=== PATIENT | female | born 1970 | race Caucasian/White ===

== ENCOUNTER 2021-07-13 10:05 | Outpatient (CLI) | payer SELFPAY ==
--- NOTE | 2021-07-13 10:11 | MM_ITS ---
WS: [id number] BILATERAL 3D TOMOSYNTHESIS DIGITAL DIAGNOSTIC MAMMOGRAPHY WITH CAD CLINICAL INFORMATION: LT BREAST LUMP/TENDERNESS 700 POSITION COMPARISON: None. TECHNIQUE: Bilateral CC, MLO, and ML views. FINDINGS: History of bilateral breast reduction Scattered fibroglandular densities bilaterally. Incidental punctate calcifications LEFT breast. No davey spicious abnormalities deep to the palpable marker LEFT breast. RIGHT breast is unremarkable. Ultraso und LEFT breast is pending. ULTRASOUND BREAST LEFT TECHNIQUE: Ultrasound left breast focused area of concern. CLINICAL INFORMATION: LT BREAST LUMP/TENDERNESS 700 POSITION COMPARISON: None. FINDINGS: Ultrasound LEFT breast in the area of patient concern near the 7:00 position 6 cm from the nipple. Th is is in the area of breast reduction scar. Normal underlying parenchymal tissue. No cystic or solid lesions. No suspicious abnormalities. MM/[place] [id number] IMPRESSION: BI-RADS: 2-Benign FOLLOW UP: 1 Year Follow-up Recommend return to annual screening mammography.
== END 2021-07-13 10:06 | disposition home or self-care (01) ==
LOC: RADSHAW 10:08
PROVIDERS: Family Provider Family Medicine; Visit Provider Nurse Practitioner Family
DX: N63.24 Unspecified lump in the left breast, lower inner quadrant (principal)
CPT/HCPCS: 76642; 77062

== ENCOUNTER 2021-08-24 12:20 | Emergency (ER) | payer SELFPAY ==
[2021-08-24 12:40] VITALS: BP 168/105; PULSE 69; RESP 16; TEMP 36.1; O2SAT 99; BMI 27.3
[2021-08-24 13:19] LABS: Basophils % 0.3 %; Hematocrit 45.4 % (37.0-47.0); Hemoglobin 15.4 g/dL (11.5-15.3); Lymphocytes # 2.2 10^3/uL (0.8-4.8); Lymphocytes % 37.4 %; Mean Corpuscular HGB Conc 33.9 g/dL (30.0-36.0); Mean Corpuscular Hemoglobin 32.2 pg (28.0-34.0); Mean Corpuscular Volume 94.8 fl (81-99); Mean Platelet Volume 11.1 fL (7.4-10.4); Monocytes # 0.5 10^3/uL (0.2-0.9); Monocytes % 7.6 %; Neutrophils # 3.24 10^3/uL (1.8-7.7); Neutrophils % 54.4 %; Nucleated Red Blood Cells % 0 %; Platelet Count 251 10^3/cmm (130-400); Red Blood Count 4.79 10^6/uL (4.1-5.3); Red Cell Distribution Width 12.7 % (12.1-15.1)
--- NOTE | 2021-08-24 13:33 | W.ED.NAVMDI ---
HPI - Nausea/Vomiting/Diarrhea General: Chief complaint: Nausea/Vomiting/Diarrhea Stated complaint: Vomiting, stomach pains Time Seen by Provider: 08/24/21 13:12 Source: patient Mode of arrival: ambulatory Limitations: no limitations History of Present Illness: Patient is a 51-year-old female who presents to ED today with complaint of nausea, vomiting, diarrhea over the past 48 hours. Patient states the vomiting and diarrhea has slowly improved over that time. And states she has only had one episode of vomiting this morning and she has not had any diarrhea since yesterday. She never had any blood in her emesis or stool. She complains of feeling dehydrated currently. Patient denies urinary symptoms or flank pains. Patient never ran fevers. No sick contacts or poor food exposures. She is not having any abdominal pain. MD elicited complaint: nausea, vomiting and diarrhea Onset (ago): day(s) Description of diarrhea: watery Associated nausea: Yes Associated abdominal pain: No Location of pain: None Exacerbating factors: eating Relieving factors: vomiting Associated symtoms: Reports nausea; Denies change in vision, chest pain, dizziness, dysuria, fatigue, headache(s) or malaise Review of Systems Const: Denies: fever(s), chills, body aches, fatigue or malaise Eyes: Denies: change in vision ENMT: Denies: throat pain, odynophagia, nasal discharge or nasal congestion Card: Denies: chest pain Resp: Denies: dyspnea or chest congestion GI: Reports: nausea, vomiting and diarrhea; Denies: abdominal pain, hematemesis, hematochezia or melena : Denies: flank pain, difficulty voiding, dysuria, urinary urgency, hematuria, vaginal bleeding, vaginal discharge or pelvic pain Musc: Denies: neck pain, back pain, extremity pain or joint pain Skin/Breast: Denies: rash Neuro: Denies: headache(s), numbness in extremities, weakness in extremities, sensory changes or dizziness Physical Exam Const: COMMON NORMALS: no acute distress, patient oriented x3, no limitations, alert and well nourished GENERAL APPEARANCE: cooperative ORIENTATION/CONSCIOUSNESS: Yes awake, Yes oriented to person, Yes oriented to place and Yes oriented to time HENMT: COMMON NORMALS: normocephalic and atraumatic HEAD & SCALP: normal to inspection, normocephalic and atraumatic Eye: GENERAL EYE: appearance normal, both eyes and all related structures SCLERA: sclerae normal Neck/C-Spine: COMMON NORMALS: full ROM, no lymphadenopathy and no meningeal signs Resp: COMMON NORMALS: normal respiratory effort and clear to auscultation bilaterally AUSCULTATION: clear to auscultation bilaterally Cardio: COMMON NORMALS: regular rate and regular rhythm RATE: regular rate RHYTHM: regular rhythm GI: COMMON NORMALS: Normal to inspection, nondistended, normoactive bowel sounds present, Soft to palpation, non-tender, No hepatosplenomegaly present and no masses INSPECTION: Yes normal to inspection AUSCULTATION: Yes normoactive bowel sounds PALPATION: Yes Soft to palpation and Yes No hepatosplenomegaly present : COMMON NORMALS: Yes no CVA tenderness BLADDER/KIDNEY EXAM: Yes no CVA tenderness Back/Pelvis: COMMON NORMALS: no CVA tenderness Extremity: COMMON NORMALS: normal to inspection Neuro: PASCUAL COMA SCALE: document GCS findings [place] coma scale eye opening: Spontaneous [place] coma scale verbal response: Orientated [place] coma scale motor response: Obey commands [place] coma scale total score: 15 COMMON NORMALS: patient oriented x3 SENSORIUM/ORIENTATION: Yes alert, Yes oriented to person, Yes oriented to place and Yes oriented to time MENINGEAL SIGNS: Yes no meningeal signs Skin: COMMON NORMALS: no rashes or lesions noted GENERAL SKIN EXAM: no rashes or lesions noted Course Vital Signs: Vital signs: Vital Signs Temperature 97.0 F L 08/24/21 12:40 Pulse Rate 69 08/24/21 12:40 Respiratory Rate 16 08/24/21 12:40 Blood Pressure 168/105 08/24/21 12:40 Pulse Oximetry 99 08/24/21 12:40 MDM - Nausea/Vomiting/Diarrhea Medical Decision Making Patient has not had any vomiting or diarrhea while here. She feels better after IV fluids and Zofran. Patient does not have any abdominal discomfort. Her blood work here is overall is non-concerning. Patient feels like she has improved since symptoms first started. Discussed how most likely this is a self-limiting gastroenteritis and hopefully she is on the tail end of it. Will write for small amount of Zofran she can use as needed at home. Recommend continuing to push fluids as well as a bland diet and advancing as tolerated. Return to ED precautions verbally discussed with patient. Lab Data : 08/24/21 13:09 08/24/21 13:09 Laboratory Results WBC 6.0 10^3/uL (4.0-10.0) 08/24/21 13:09 RBC 4.79 10^6/uL (4.1-5.3) 08/24/21 13:09 Hgb 15.4 g/dL (11.5-15.3) H 08/24/21 13:09 Hct 45.4 % (37.0-47.0) 08/24/21 13:09 MCV 94.8 fl (81-99) 08/24/21 13:09 MCH 32.2 pg (28.0-34.0) 08/24/21 13:09 MCHC 33.9 g/dL (30.0-36.0) 08/24/21 13:09 RDW 12.7 % (12.1-15.1) 08/24/21 13:09 Plt Count 251 10^3/cmm (130-400) 08/24/21 13:09 MPV 11.1 fL (7.4-10.4) H 08/24/21 13:09 Neut % (Auto) 54.4 % 08/24/21 13:09 Lymph % (Auto) 37.4 % 08/24/21 13:09 Piatt % (Auto) 7.6 % 08/24/21 13:09 Eos % (Auto) 0.0 % 08/24/21 13:09 Baso % (Auto) 0.3 % 08/24/21 13:09 Neut # (Auto) 3.24 10^3/uL (1.8-7.7) 08/24/21 13:09 Lymph # (Auto) 2.2 10^3/uL (0.8-4.8) 08/24/21 13:09 Piatt # (Auto) 0.5 10^3/uL (0.2-0.9) 08/24/21 13:09 Eos # (Auto) 0.0 10^3/uL (0.0-0.8) 08/24/21 13:09 Baso # (Auto) 0.0 10^3/uL (0.0-0.1) 08/24/21 13:09 Nucleated RBC % (auto) 0 % 08/24/21 13:09 Nucleated RBCs # 0.0 /100WBC 08/24/21 13:09 Sodium 141 mmol/L (136-145) 08/24/21 13:09 Potassium 4.0 mmol/L (3.5-5.1) 08/24/21 13:09 Chloride 104 mmol/L (98-107) 08/24/21 13:09 Carbon Dioxide 26 mmol/L (22-29) 08/24/21 13:09 Anion Gap 15.0 (5-19) 08/24/21 13:09 BUN 15 mg/dL (6-20) 08/24/21 13:09 Creatinine 0.6 mg/dL (0.5-0.9) 08/24/21 13:09 GFR Calculation 104.6 mL/min (90-130) 08/24/21 13:09 Glucose 92 mg/dL (65-115) 08/24/21 13:09 Calculated Osmolality 292 mOsm/kg (285-295) 08/24/21 13:09 Calcium 9.6 mg/dL (8.5-10.5) 08/24/21 13:09 Total Bilirubin 0.3 mg/dL (0.15-1.2) 08/24/21 13:09 AST 22 U/L (0-32) 08/24/21 13:09 ALT 39 U/L (0-33) H 08/24/21 13:09 Alkaline Phosphatase 124 IU/L (35-105) H 08/24/21 13:09 Total Protein 7.5 g/dL (6.6-8.7) 08/24/21 13:09 Albumin 4.4 g/dL (3.5-5.2) 08/24/21 13:09 Globulin 3.1 g/dL (1.3-4.6) 08/24/21 13:09 Lipase 20 U/L (13-60) 08/24/21 13:09 Urine Color Straw (Yellow) 08/24/21 13:09 Urine Appearance Clear (CLEAR) 08/24/21 13:09 Urine pH 5 (5-7) 08/24/21 13:09 Ur Specific [place] 1.010 (1.005-1.030) 08/24/21 13:09 Urine Protein Neg (Negative) 08/24/21 13:09 Urine Glucose (UA) Norm (Normal) 08/24/21 13:09 Urine Ketones 2+ (Negative) H 08/24/21 13:09 Urine Blood Neg (Negative) 08/24/21 13:09 Urine Nitrate Negative (Negative) 08/24/21 13:09 Urine Bilirubin Neg (Negative) 08/24/21 13:09 Urine Urobilinogen Norm mg/dL (Negative) 08/24/21 13:09 Ur Leukocyte Esterase Negative (Negative) 08/24/21 13:09 Discharge Plan Discharge Patient Disposition: Home Clinical Impression: Gastroenteritis Condition: Stable Prescriptions: New ondansetron 4 mg tablet,disintegrating 4 mg PO Q8H PRN (Reason: nausea and vomiting) Qty: 8 0RF Discharge Orders: Discharge ED (Routine); Ordered 08/24/21 Ordered By: Bessie Irene Referrals: Angel Pittman MD [Family Provider] - Patient Instructions: Gastroenteritis (DC) Stand Alone Forms: Work/School Release Coding Level of Care Code 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
[2021-08-24 13:34] LABS: Alanine Aminotransferase 39 U/L (0-33); Albumin Level 4.4 g/dL (3.5-5.2); Alkaline Phosphatase 124 IU/L (35-105); Aspartate Amino Transferase 22 U/L (0-32); Blood Urea Nitrogen 15 mg/dL (6-20); Calcium 9.6 mg/dL (8.5-10.5); Carbon Dioxide 26 mmol/L (22-29); Chloride 104 mmol/L (98-107); Globulin 3.1 g/dL (1.3-4.6); Glomerular Filtration Rate 104.6 mL/min (90-130); Glucose 92 mg/dL (65-115); Lipase 20 U/L (13-60); Osmolality Calculated 292 mOsm/kg (285-295); Sodium 141 mmol/L (136-145); Total Bilirubin 0.3 mg/dL (0.15-1.2); Total Protein 7.5 g/dL (6.6-8.7)
[2021-08-24] MEDS: ondansetron 2 mg/ML SDV 2 mL 4 MG IVP (13:41)
[2021-08-24] MEDS: sodium chloride 0.9% 1,000 ML 999 ML IV (13:41)
[2021-08-24 18:29] LABS: Add Urine Culture? Yes; Add Urine Microscopic? YES; Bacteria Urine 4+ /hpf; Bilirubin Urine Neg (Negative); Blood Urine Neg (Negative); Glucose Urine UA Norm (Normal); Ketones Urine Negative (Negative); Leukocyte Esterase Urine Negative (Negative); Nitrate Urine Negative (Negative); Protein Urine Neg (Negative); RBC Urine 0-4 /hpf (0-2); Urine Appearance Cloudy (CLEAR); Urine Color Yellow (Yellow); Urobilinogen Urine 1 mg/dL (Negative); WBC Urine 15-25 /hpf (0-5); pH Urine 6 (5-7)
== END 2021-08-24 14:31 | disposition home or self-care (01) ==
PROVIDERS: Emergency Provider Physician Assistant
DX: K52.9 Noninfective gastroenteritis and colitis, unspecified (principal)
CPT/HCPCS: 80053; 81001; 83690; 85025; 87077; 87086; 96361; 96374; 99284; J2405; J7030

== ENCOUNTER 2021-11-07 12:14 | Emergency (ER) | payer SELFPAY ==
[2021-11-07 12:24] VITALS: BP 193/103; PULSE 69; RESP 18; TEMP 36.8; O2SAT 99; BMI 27.3
[2021-11-07 13:54] LABS: Basophils % 0.4 %; Hematocrit 46.9 % (37.0-47.0); Hemoglobin 15.9 g/dL (11.5-15.3); Lymphocytes # 2.5 10^3/uL (0.8-4.8); Lymphocytes % 34.9 %; Mean Corpuscular HGB Conc 33.9 g/dL (30.0-36.0); Mean Corpuscular Hemoglobin 32.1 pg (28.0-34.0); Mean Corpuscular Volume 94.7 fl (81-99); Mean Platelet Volume 10.9 fL (7.4-10.4); Monocytes # 0.5 10^3/uL (0.2-0.9); Monocytes % 6.5 %; Neutrophils % 57.8 %; Nucleated Red Blood Cells % 0 %; Platelet Count 264 10^3/cmm (130-400); Red Blood Count 4.95 10^6/uL (4.1-5.3); Red Cell Distribution Width 13.6 % (12.1-15.1); White Blood Count 7.3 10^3/uL (4.0-10.0)
[2021-11-07 14:23] LABS: Alanine Aminotransferase 37 U/L (0-33); Albumin Level 4.9 g/dL (3.5-5.2); Alkaline Phosphatase 123 IU/L (35-105); Anion Gap 13.9 (5-19); Aspartate Amino Transferase 17 U/L (0-32); Blood Urea Nitrogen 15 mg/dL (6-20); Calcium 9.9 mg/dL (8.5-10.5); Carbon Dioxide 28 mmol/L (22-29); Chloride 103 mmol/L (98-107); Globulin 2.6 g/dL (1.3-4.6); Glomerular Filtration Rate 104.6 mL/min (90-130); Glucose 91 mg/dL (65-115); Osmolality Calculated 292 mOsm/kg (285-295); Potassium 3.9 mmol/L (3.5-5.1); Sodium 141 mmol/L (136-145); Total Bilirubin 0.3 mg/dL (0.15-1.2); Total Protein 7.5 g/dL (6.6-8.7)
[2021-11-07 15:33] VITALS: BP 160/102
--- NOTE | 2021-11-07 16:31 | W.ED.GENADLT ---
HPI - General Adult General: Chief complaint: General Medical Stated complaint: high bp issues Time Seen by Provider: 11/07/21 16:02 Source: patient Mode of arrival: ambulatory Limitations: no limitations History of Present Illness: Patient is a 51-year-old female with no known medical conditions here for concerns of an elevated blood pressure reading today. Patient states she was at work when she began feeling lightheaded and dizzy. She was instructed by a coworker to check her blood pressure. She states when she did she had readings of 180s/100s. Patient was instructed to go to the emergency department. Upon arrival here blood pressure was 190s/100s. While sitting in the waiting room blood pressure did decrease and during my initial examination systolic was in the 160s. She does states she feels better but does complain of generally feeling weak/tired. She has no complaints of chest pain, back pain, shortness of breath or difficulty breathing. No headache or visual changes. Patient states she never checks her blood pressure at home. Onset (ago): hour(s) Associated symptoms: Deny chest pain, dyspnea, headache(s), malaise, nausea, rash, palpitations, syncope or vomiting Review of Systems Const: Denies: fever(s), chills, body aches, fatigue or malaise Eyes: Denies: change in vision, blurry vision, photophobia, floaters or seeing flashes Card: Denies: chest pain, palpitations, irregular heart rhythm, lightheadedness, syncope or dyspnea on exertion Resp: Denies: dyspnea, productive cough or pain on inspiration GI: Denies: abdominal pain, nausea, vomiting, heartburn or diarrhea : Denies: flank pain, dysuria or hematuria Musc: Denies: neck pain, back pain, extremity pain or joint pain Skin/Breast: Denies: rash Neuro: Reports: other (weak); Denies: headache(s), numbness in extremities, weakness in extremities, sensory changes or dizziness Physical Exam Const: COMMON NORMALS: no acute distress, patient oriented x3, no limitations, alert and well nourished GENERAL APPEARANCE: cooperative ORIENTATION/CONSCIOUSNESS: Yes awake, Yes oriented to person, Yes oriented to place and Yes oriented to time HENMT: COMMON NORMALS: normocephalic and atraumatic HEAD & SCALP: normal to inspection, normocephalic and atraumatic Eye: GENERAL EYE: appearance normal, both eyes and all related structures Neck/C-Spine: COMMON NORMALS: full ROM, no lymphadenopathy, supple and no meningeal signs Chest: COMMONS NORMALS: normal inspection of the chest Resp: COMMON NORMALS: normal respiratory effort and clear to auscultation bilaterally AUSCULTATION: clear to auscultation bilaterally Cardio: COMMON NORMALS: regular rate and regular rhythm RATE: regular rate RHYTHM: regular rhythm GI: COMMON NORMALS: Normal to inspection, nondistended, normoactive bowel sounds present, Soft to palpation, non-tender, No hepatosplenomegaly present and no masses PALPATION: Yes Soft to palpation and Yes No hepatosplenomegaly present : COMMON NORMALS: Yes no CVA tenderness BLADDER/KIDNEY EXAM: Yes no CVA tenderness Back/Pelvis: COMMON NORMALS: no CVA tenderness, thoracic and lumbar spine normal to inspection, no thoracic nor lumbar tenderness and thoraco-lumbar ROM normal Extremity: COMMON NORMALS: normal to inspection, no joint enlargement, no clubbing, cyanosis or edema, no calf tenderness and no pedal edema GENERAL: Yes normal exam except as noted Neuro: NIALL COMA SCALE: document GCS findings [place] coma scale eye opening: Spontaneous [place] coma scale verbal response: Orientated [place] coma scale motor response: Obey commands [place] coma scale total score: 15 COMMON NORMALS: patient oriented x3, CN's II-XII intact bilaterally, moves all extremities, no focal motor deficits, no sensory deficits noted and gait normal SENSORIUM/ORIENTATION: Yes alert, Yes oriented to person, Yes oriented to place and Yes oriented to time MENINGEAL SIGNS: Yes no meningeal signs Skin: COMMON NORMALS: no rashes or lesions noted GENERAL SKIN EXAM: no rashes or lesions noted Course Vital Signs: Vital signs: Vital Signs Temperature 98.2 F 11/07/21 12:24 Pulse Rate 69 11/07/21 12:24 Respiratory Rate 18 11/07/21 12:24 Blood Pressure 160/102 11/07/21 15:33 Pulse Oximetry 99 11/07/21 12:24 [facility] - General Adult Medical Decision Making Patient tells me a long time ago she was diagnosed with hypertension and used to take lisinopril but for what ever reason is no longer taking this medication. She reportedly does not take her blood pressures at home. My suspicion is that her blood pressure is chronically high and she just had a spike of this today while at work. She doesn't have any history of signs concerning for end organ damage. She will be allowed discharge with directions to start back on lisinopril and keep BP log. Will place referral to get her follow up with a PCP. Strict return to ED precautions given. Lab Data : 11/07/21 13:45 11/07/21 13:45 Laboratory Results WBC 7.3 10^3/uL (4.0-10.0) 11/07/21 13:45 RBC 4.95 10^6/uL (4.1-5.3) 11/07/21 13:45 Hgb 15.9 g/dL (11.5-15.3) H 11/07/21 13:45 Hct 46.9 % (37.0-47.0) 11/07/21 13:45 MCV 94.7 fl (81-99) 11/07/21 13:45 MCH 32.1 pg (28.0-34.0) 11/07/21 13:45 MCHC 33.9 g/dL (30.0-36.0) 11/07/21 13:45 RDW 13.6 % (12.1-15.1) 11/07/21 13:45 Plt Count 264 10^3/cmm (130-400) 11/07/21 13:45 MPV 10.9 fL (7.4-10.4) H 11/07/21 13:45 Neut % (Auto) 57.8 % 11/07/21 13:45 Lymph % (Auto) 34.9 % 11/07/21 13:45 Andrew % (Auto) 6.5 % 11/07/21 13:45 Eos % (Auto) 0.0 % 11/07/21 13:45 Baso % (Auto) 0.4 % 11/07/21 13:45 Neut # (Auto) 4.20 10^3/uL (1.8-7.7) 11/07/21 13:45 Lymph # (Auto) 2.5 10^3/uL (0.8-4.8) 11/07/21 13:45 Andrew # (Auto) 0.5 10^3/uL (0.2-0.9) 11/07/21 13:45 Eos # (Auto) 0.0 10^3/uL (0.0-0.8) 11/07/21 13:45 Baso # (Auto) 0.0 10^3/uL (0.0-0.1) 11/07/21 13:45 Nucleated RBC % (auto) 0 % 11/07/21 13:45 Nucleated RBCs # 0.0 /100WBC 11/07/21 13:45 Sodium 141 mmol/L (136-145) 11/07/21 13:45 Potassium 3.9 mmol/L (3.5-5.1) 11/07/21 13:45 Chloride 103 mmol/L (98-107) 11/07/21 13:45 Carbon Dioxide 28 mmol/L (22-29) 11/07/21 13:45 Anion Gap 13.9 (5-19) 11/07/21 13:45 BUN 15 mg/dL (6-20) 11/07/21 13:45 Creatinine 0.6 mg/dL (0.5-0.9) 11/07/21 13:45 GFR Calculation 104.6 mL/min (90-130) 11/07/21 13:45 Glucose 91 mg/dL (65-115) 11/07/21 13:45 Calculated Osmolality 292 mOsm/kg (285-295) 11/07/21 13:45 Calcium 9.9 mg/dL (8.5-10.5) 11/07/21 13:45 Total Bilirubin 0.3 mg/dL (0.15-1.2) 11/07/21 13:45 AST 17 U/L (0-32) 11/07/21 13:45 ALT 37 U/L (0-33) H 11/07/21 13:45 Alkaline Phosphatase 123 IU/L (35-105) H 11/07/21 13:45 Total Protein 7.5 g/dL (6.6-8.7) 11/07/21 13:45 Albumin 4.9 g/dL (3.5-5.2) 11/07/21 13:45 Globulin 2.6 g/dL (1.3-4.6) 11/07/21 13:45 Discharge Plan Discharge Patient Disposition: Home Clinical Impression: Hypertension Condition: Stable Prescriptions: New lisinopril 20 mg tablet 20 mg PO DAILY Qty: 30 0RF No Action ondansetron 4 mg tablet,disintegrating 4 mg PO Q8H PRN (Reason: nausea and vomiting) Qty: 8 0RF Discharge Orders: Discharge ED (Routine); Ordered 11/07/21 Ordered By: Bessie Irene Patient Instructions: Hypertension (ED) Activity Restrictions/Additional Instructions: As we discussed you need to keep a detailed blood pressure log taking your blood pressures no more than 2-3 times a day. I have placed a referral for case management to set you up with primary care provider for further evaluation and treatment. You need to return to the emergency department for symptoms such as severe headache, visual changes, lightheadedness/dizziness, trouble ambulating, chest pain/shortness of breath, repetitive vomiting, severe back pain, seizures, or any other concerns you may have. Coding Level of Care Code ED Straight Line Edger for Kristyn Johnson
--- NOTE | 2021-11-09 09:10 | DCPLANNER ---
manager pool had message to speak with patient about getting established with a primary care physician. manager pool called phone number [phone], person that answered the phone stated that this is not the patients phone number and has not been for several years.
== END 2021-11-07 17:15 | disposition home or self-care (01) ==
PROVIDERS: Emergency Provider Physician Assistant
DX: I10 Essential (primary) hypertension (principal)
CPT/HCPCS: 80053; 85025; 99283

== ENCOUNTER 2022-02-13 07:32 | Emergency (ER) | payer SELFPAY ==
[2022-02-13] VITALS (12 sets, daily range): BP systolic 167–207; BP diastolic 90–121; PULSE 54–77; RESP 16–18; TEMP 36.7; O2SAT 95–98; BMI 28.1
--- NOTE | 2022-02-13 08:05 | XR_ITS ---
WS: [id number] Exam: XR chest 1V portable [id number] Date/Time of Exam: 02/13/2022 8:05 AM Reason For Exam: cough and fever Comparison 05/25/2017. Findings: The lungs are clear and fully expanded. Costophrenic angles are sharp. No infiltrates. Bronchovascula r relief appears normal. Cardiac silhouette is unremarkable. Bony elements are intact. XR/XR chest 1V portable [id number] IMPRESSION: Unremarkable chest radiograph.
--- NOTE | 2022-02-13 08:06 | W.ED.URI ---
HPI - URI/Sore Throat General: Chief Complaint: Upper Respiratory Infection Stated Complaint: Shortness of Breath Time Seen by Provider: 02/13/22 07:47 History of Present Illness: Patient is a 51-year-old female who comes to the ED with cough. Symptoms started approximately 2 weeks ago. She is been having a dry cough that has continued to worsen. She is not able to cough anything up but says her cough gets worse at night she has trouble sleeping. Endorses having some body aches and chills as well. She had a couple days of a fever along with some nausea. Denies any known sick contacts. Denies any chest pain or shortness of breath. Patient is a current and daily tobacco smoker. Patient says she is taken multiple at home COVID test this week and they were all negative. Patient is supposed to be on lisinopril for hypertension but states she does not have a prescription for it and has not been taking it. Associated symptoms: Reports chills, fever(s) and nausea; Deny abdominal pain, chest pain, diarrhea, headache(s), nasal congestion or vomiting Review of Systems Const: Reports: fever(s), chills, body aches and fatigue Eyes: Denies: change in vision or eye discomfort ENMT: Denies: throat pain, odynophagia, nasal discharge or nasal congestion Card: Denies: chest pain, palpitations, edema, swelling of feet/ankles, dyspnea on exertion or orthopnea Resp: Reports: non-productive cough; Denies: dyspnea or productive cough GI: Reports: nausea; Denies: abdominal pain, vomiting, diarrhea, constipation or hematochezia : Denies: flank pain, dysuria or hematuria Musc: Denies: neck pain, back pain or extremity swelling Skin/Breast: Denies: rash or new lesions Neuro: Denies: headache(s), numbness in extremities or weakness in extremities PFS ED PFSH: Medical History (Updated 02/14/22 @ 12:11 by GRECIA Jernigan) Hypertension No pertinent family history Physical Exam Const: COMMON NORMALS: no acute distress, patient oriented x3 and alert GENERAL APPEARANCE: cooperative and comfortable HENMT: COMMON NORMALS: normocephalic HEAD & SCALP: normocephalic MOUTH: Normal oral and palatal mucosa present THROAT: posterior oropharynx normal and uvula midline Neck/C-Spine: COMMON NORMALS: supple GENERAL: Yes normal visual inspection Resp: COMMON NORMALS: normal respiratory effort, No retractions and No use of accessory muscles EFFORT & INSPECTION: Yes Actively coughing dry and strong AUSCULTATION: diminished lung sounds bilateral in the lower lung darby Cardio: COMMON NORMALS: regular rate, regular rhythm, S1 normal heart sound present, S2 normal heart sound present, No gallops present (Cardio), No clicks present (Cardio), No murmurs present (Cardio) and Peripheral pulses 2+ throughout RATE: regular rate RHYTHM: regular rhythm HEART SOUNDS: S1 normal heart sound present and S2 normal heart sound present PERIPHERAL PULSES: Peripheral pulses 2+ throughout GI: COMMON NORMALS: Normal to inspection, nondistended, normoactive bowel sounds present, Soft to palpation, non-tender and no masses PALPATION: Yes Soft to palpation : COMMON NORMALS: Yes no CVA tenderness BLADDER/KIDNEY EXAM: Yes no CVA tenderness Back/Pelvis: COMMON NORMALS: no CVA tenderness Extremity: COMMON NORMALS: normal to inspection Neuro: COMMON NORMALS: patient oriented x3 SENSORIUM/ORIENTATION: Yes alert GAIT: Yes Normal gait present Skin: GENERAL SKIN EXAM: dry skin Course Vital Signs: Vital signs: Vital Signs Temperature 98.1 F 02/13/22 07:39 Pulse Rate 54 L 02/13/22 10:12 Respiratory Rate 18 02/13/22 10:12 Blood Pressure 185/98 02/13/22 10:12 Pulse Oximetry 95 02/13/22 10:12 Oxygen Delivery Me thod 02/13/22 10:12 MDM - URI/Sore Throat Medical Decision Making Patient is a 51-year-old female who comes to the ED with cough. Symptoms started approximately 2 weeks ago. Endorses having some body aches fevers nausea as well. She did at home COVID test a couple times this past week and they were all negative. Denies chest pain or shortness of breath. She is a daily tobacco smoker. Blood pressure was elevated here in the ED and it as high as it was 207/112. Patient is supposed be on lisinopril but has not been taking it. Rest of her vitals are stable. Patient appears nontoxic in no acute distress or pain. She has some diminished lung sounds at the bases of the lungs bilaterally and she is actively coughing. Rest of exam is benign. Chest x-ray shows no pneumonia. Here in the ED she was given DuoNeb breathing treatment and Solu-Medrol. She was also given a dose of hydralazine and clonidine here in the ED and her blood pressure went down to 185/98. I placed an order with case management for patient to be set up with a primary care physician to get established care with them. She is diagnosed with bronchitis and hypertension and was discharged home with a prescription for lisinopril, albuterol inhaler, Tessalon Perles, prednisone and azithromycin. Return to ED precautions given. Patient understood and agreed with plan. Lab Data Radiology Impressions Chest X-Ray 02/13/22 08:05 IMPRESSION: Unremarkable chest radiograph. Discharge Plan Discharge Patient Disposition: Home Clinical Impression: Bronchitis Hypertension Qualifiers: Hypertension type: unspecified Qualified Code(s): I10 - Essential (primary) hypertension Condition: Stable Prescriptions: New azithromycin 250 mg tablet See Rx Instructions .ROUTE .COMPLEX Qty: 6 0RF Rx Instructions: For 250 mg dose pack: take 500 mg today (day 1), then 250 mg for 4 days (days 2-5) prednisone 20 mg tablet 20 mg PO BID 5 Days Qty: 10 0RF benzonatate 100 mg capsule 100 mg PO Q6H PRN (Reason: cough) Qty: 20 0RF lisinopril 20 mg tablet 20 mg PO DAILY Qty: 30 0RF albuterol sulfate 90 mcg/actuation HFA aerosol inhaler 2 inh inhalation Q6H PRN (Reason: shortness of breath or wheezing) Qty: 8.5 0RF No Action lisinopril 20 mg tablet 20 mg PO DAILY Qty: 30 0RF ondansetron 4 mg tablet,disintegrating 4 mg PO Q8H PRN (Reason: nausea and vomiting) Qty: 8 0RF Discharge Orders: Discharge ED (Routine); Ordered 02/13/22 Ordered By: Rowdy Swartz Discharge Diet: Regular Discharge Activity: Increase activity as tolerated Patient Instructions: Acute Bronchitis (ED), Hypertension (ED) Activity Restrictions/Additional Instructions: Follow-up with medical provider as directed. Case management should be contacting you in the next several days set up an appointment with a primary care physician. Take medications as prescribed. Return to the ER or your medical provider if condition worsens. Please read and understand discharge instructions. Thank you for choosing [facility] for your healthcare needs today. Please realize this is an emergency room and that we are providing you with a medical screening exam and this may not be complete and all inclusive of all the testing and or work up that you may need to determine your ailment or severity of your illness. It is very important that you follow up as instructed or that you return to the Emergency Department should you have concerns or if your condition changes or worsens in any way. Coding Level of Care Code ED Systems Support Officer for Kristyn Johnson Exam Comprehensive
[2022-02-13] MEDS: ipratropium-albuterol 3 mL Neb 6 ML INHALATION (08:19)
[2022-02-13] MEDS: hyDRALAzine 25 mg Tablet PO (08:49)
[2022-02-13] MEDS: cloNIDine 0.1 mg Tablet PO (09:36)
--- NOTE | 2022-02-15 09:51 | DCPLANNER ---
placement manager had message to speak with patient about getting established with a primary care physician. placement manager called phone number [phone] - phone is not accepting messages at this time.
== END 2022-02-13 10:20 | disposition home or self-care (01) ==
PROVIDERS: Emergency Provider Physician Assistant
DX: I10 Essential (primary) hypertension (principal); J40 Bronchitis, not specified as acute or chronic; F17.200 Nicotine dependence, unspecified, uncomplicated
CPT/HCPCS: 71045; 94640; 96374; 99284; J2930

== ENCOUNTER 2022-09-29 23:14 | Emergency (ER) | payer SELFPAY ==
--- NOTE | 2022-09-29 23:20 | XRR_ITS ---
PROCEDURE INFORMATION: Exam: XR Chest Exam date and time: 09/29/2022 11:24 PM Age: 52 years old Clinical indication: Pain; Chest pressure; Additional info: Cp TECHNIQUE: Imaging protocol: Radiologic exam of the chest. Views: 1 view. COMPARISON: CR XR chest 1V portable [id number] 02/13/2022 8:10 AM FINDINGS: Lungs: Unremarkable. No consolidation. Pleural spaces: Unremarkable. No pleural effusion. No pneumothorax. Heart/Mediastinum: Unremarkable. No cardiomegaly. Bones/joints: Unremarkable. XR/XR chest 1V portable [id number] IMPRESSION: No acute findings.
--- NOTE | 2022-09-29 23:20 | ECG_ITS ---
[facility] Test Date: 2022-09-29 Pat Name: Malathi Caicedo Department: Room: Gender: Female Fisher Eel Spear: : 1970 Requested By: Mary Stoll Order Number: [id number] Basim MD: Ivon Braden M.D. Measurements Intervals [place] Rate: 69 P: 8 ND: 128 QRS: -32 QRSD: 105 T: -7 QT: 414 QTc: 446 Interpretive Statements SINUS RHYTHM LEFT AXIS DEVIATION [QRS AXIS < -30] ST DEVIATION AND MODERATE T-WAVE ABNORMALITY, CONSIDER ANTEROLATERAL ISCHEMIA [-0.1+ mV T-WAVE IN V3-V6] Compared to ECG 12/31/2016 14:23:49 Left-axis deviation now present T-wave abnormality now present Possible ischemia now present Short ND interval no longer present Electronically Signed On 09-30-2022 5:26:45 CDT by Ivon Braden M.D. [id number]
[2022-09-29 23:21] VITALS: BP 223/127; PULSE 67; RESP 16; TEMP 37.1; O2SAT 96; BMI 28.1
[2022-09-29 23:33] VITALS: BP 212/116; PULSE 67; RESP 18; O2SAT 97
[2022-09-29 23:38] LABS: Basophils % 0.6 %; Eosinophils % 0.1 %; Hematocrit 42.3 % (37.0-47.0); Hemoglobin 15.3 g/dL (11.5-15.3); Lymphocytes # 2.4 10^3/uL (0.8-4.8); Lymphocytes % 34.6 %; Mean Corpuscular HGB Conc 36.2 g/dL (30.0-36.0); Mean Corpuscular Hemoglobin 34.2 pg (28.0-34.0); Mean Corpuscular Volume 94.4 fl (81-99); Mean Platelet Volume 10.7 fL (7.4-10.4); Monocytes # 0.6 10^3/uL (0.2-0.9); Monocytes % 8.8 %; Neutrophils # 3.77 10^3/uL (1.8-7.7); Neutrophils % 55.5 %; Nucleated Red Blood Cells % 0 %; Platelet Count 249 10^3/cmm (130-400); Red Blood Count 4.48 10^6/uL (4.1-5.3); Red Cell Distribution Width 13.3 % (12.1-15.1); White Blood Count 6.8 10^3/uL (4.0-10.0)
[2022-09-29] MEDS: hyDRALAzine 20 mg/mL INJ 1 mL 10 MG IVP (23:55)
[2022-09-29] MEDS: ondansetron 2 mg/ML SDV 2 mL 4 MG IVP (23:57)
--- NOTE | 2022-09-29 23:58 | W.ED.CHESTPA ---
HPI - Chest Pain General: Chief Complaint: Chest Pain Stated Complaint: Chest pain Time Seen by Provider: 09/29/22 23:15 Source: patient and EMS Mode of arrival: EMS Limitations: no limitations History of Present Illness: 52-year-old female states that she had some chest pain along with neck pain has been going on for 3 days states its been a sharp pain. States her blood pressure is also been high she takes lisinopril but states she does not really take it as prescribed and misses a lot of doses she is hypertensive here. She denies any vomiting denies any worsening improving factors. Associated symptoms: Deny abdominal pain, dyspnea, fever(s), nausea or vomiting Review of Systems Const: Denies: fever(s), chills, body aches or change in appetite ENMT: Denies: throat pain or dental pain Card: Reports: chest pain Resp: Denies: dyspnea GI: Denies: abdominal pain, nausea, vomiting or diarrhea : Denies: dysuria Musc: Denies: neck pain or back pain Skin/Breast: Denies: rash Neuro: Denies: headache(s) PFSH ED PFSH: Medical History Hypertension No pertinent family history Physical Exam Const: COMMON NORMALS: no acute distress, patient oriented x3 and healthy appearing HENMT: COMMON NORMALS: normocephalic and atraumatic HEAD & SCALP: normocephalic and atraumatic Eye: COMMON NORMALS: Equal, round and reactive pupils present and EOMs intact bilaterally PUPIL: Yes Equal, round and reactive pupils present Neck/C-Spine: COMMON NORMALS: full ROM and supple Chest: COMMONS NORMALS: normal inspection of the chest and normal palpation of entire chest wall Resp: COMMON NORMALS: normal respiratory effort, No retractions, No use of accessory muscles and clear to auscultation bilaterally AUSCULTATION: clear to auscultation bilaterally Cardio: COMMON NORMALS: regular rate, regular rhythm and No murmurs present (Cardio) RATE: regular rate RHYTHM: regular rhythm GI: COMMON NORMALS: Normal to inspection, nondistended, normoactive bowel sounds present, Soft to palpation, non-tender and no masses PALPATION: Yes Soft to palpation Extremity: COMMON NORMALS: normal to inspection and full ROM Neuro: COMMON NORMALS: patient oriented x3, moves all extremities and no focal motor deficits Psych: COMMON NORMALS: mental status grossly normal, Normal thought process present and cooperative THOUGHT PROCESS: Normal thought process present Skin: COMMON NORMALS: no rashes or lesions noted and no wounds GENERAL SKIN EXAM: no rashes or lesions noted Course Vital Signs: Vital signs: Vital Signs Temperature 98.7 F 09/29/22 23:21 Pulse Rate 81 09/30/22 01:33 Respiratory Rate 18 09/29/22 23:33 Blood Pressure 209/129 09/30/22 01:33 Pulse Oximetry 97 09/30/22 01:33 Oxygen Delivery Me thod Room Air 09/30/22 01:33 MDM - Chest Pain Medical Decision Making Patient presents here with chest pain that is atypical in nature initial repeat troponins are normal EKG x-rays are normal she does have some hypokalemia we will do potassium replacement she is to follow-up PCP and return if worsening she understands agrees to plan. Lab Data I reviewed the patient's lab results. 09/29/22 23:00 09/30/22 01:24 Radiology Impressions Chest X-Ray 09/29/22 23:20 IMPRESSION: No acute findings. Laboratory Results WBC 6.8 10^3/uL (4.0-10.0) 09/29/22 23:00 RBC 4.48 10^6/uL (4.1-5.3) 09/29/22 23:00 Hgb 15.3 g/dL (11.5-15.3) 09/29/22 23:00 Hct 42.3 % (37.0-47.0) 09/29/22 23:00 MCV 94.4 fl (81-99) 09/29/22 23:00 MCH 34.2 pg (28.0-34.0) H 09/29/22 23:00 MCHC 36.2 g/dL (30.0-36.0) H 09/29/22 23:00 RDW 13.3 % (12.1-15.1) 09/29/22 23:00 Plt Count 249 10^3/cmm (130-400) 09/29/22 23:00 MPV 10.7 fL (7.4-10.4) H 09/29/22 23:00 Neut % (Auto) 55.5 % 09/29/22 23:00 Lymph % (Auto) 34.6 % 09/29/22 23:00 [place] % (Auto) 8.8 % 09/29/22 23:00 Eos % (Auto) 0.1 % 09/29/22 23:00 Baso % (Auto) 0.6 % 09/29/22 23:00 Neut # (Auto) 3.77 10^3/uL (1.8-7.7) 09/29/22 23:00 Lymph # (Auto) 2.4 10^3/uL (0.8-4.8) 09/29/22 23:00 [place] # (Auto) 0.6 10^3/uL (0.2-0.9) 09/29/22 23:00 Eos # (Auto) 0.0 10^3/uL (0.0-0.8) 09/29/22 23:00 Baso # (Auto) 0.0 10^3/uL (0.0-0.1) 09/29/22 23:00 Nucleated RBC % (auto) 0 % 09/29/22 23:00 Nucleated RBCs # 0.0 /100WBC 09/29/22 23:00 Sodium 137 mmol/L (136-145) 09/29/22 23:00 Potassium 2.7 mmol/L (3.5-5.1) L* 09/30/22 01:24 Chloride 98 mmol/L (98-107) 09/29/22 23:00 Carbon Dioxide 27 mmol/L (22-29) 09/29/22 23:00 Anion Gap 14.6 (5-19) 09/29/22 23:00 BUN 20 mg/dL (6-20) 09/29/22 23:00 Creatinine 1.0 mg/dL (0.5-0.9) H 09/29/22 23:00 GFR Calculation 57.8 mL/min (90-130) L 09/29/22 23:00 Glucose 118 mg/dL (65-115) H 09/29/22 23:00 Calculated Osmolality 288 mOsm/kg (285-295) 09/29/22 23:00 Calcium 9.4 mg/dL (8.5-10.5) 09/29/22 23:00 Magnesium 2.0 mg/dL (1.7-2.3) 09/29/22 23:34 Total Bilirubin 0.4 mg/dL (0.15-1.2) 09/29/22 23:00 AST 21 U/L (0-32) 09/29/22 23:00 ALT 29 U/L (0-33) 09/29/22 23:00 Alkaline Phosphatase 114 U/L (35-105) H 09/29/22 23:00 Troponin T Baseline 24 ng/L (0-10) H 09/29/22 23:00 Troponin T 120 Minute 19.36 ng/L (0-10) H 09/30/22 01:00 Delta Troponin T -4.64 ABS# (0-10) L 09/30/22 01:00 Total Protein 6.9 g/dL (6.6-8.7) 09/29/22 23:00 Albumin 4.3 g/dL (3.5-5.2) 09/29/22 23:00 Globulin 2.6 g/dL (1.3-4.6) 09/29/22 23:00 EKG Data EKG 1: I personally reviewed and interpreted this EKG as follows: EKG interpretation date: 09/29/22 EKG interpretation time: 23:25 Interpretation: nsr hr [address] or t wave abnormalities qrs 105 qtc 433 EKG 2: I personally reviewed and interpreted this EKG as follows: EKG interpretation date: 09/30/22 EKG interpretation time: 01:39 Interpretation: nsr hr [address] or t wave abnormalities qrs 104 qtc 371 Discharge Plan Discharge Patient Disposition: Home Clinical Impression: Chest pain, Hypokalemia Condition: Stable Prescriptions: New potassium chloride 20 mEq packet 20 meq PO TID Qty: 20 0RF No Action lisinopril 20 mg tablet 20 mg PO DAILY Qty: 30 0RF azithromycin 250 mg tablet See Rx Instructions .ROUTE .COMPLEX Qty: 6 0RF Rx Instructions: For 250 mg dose pack: take 500 mg today (day 1), then 250 mg for 4 days (days 2-5) benzonatate 100 mg capsule 100 mg PO Q6H PRN (Reason: cough) Qty: 20 0RF lisinopril 20 mg tablet 20 mg PO DAILY Qty: 30 0RF albuterol sulfate 90 mcg/actuation HFA aerosol inhaler 2 inh inhalation Q6H PRN (Reason: shortness of breath or wheezing) Qty: 8.5 0RF ondansetron 4 mg tablet,disintegrating 4 mg PO Q8H PRN (Reason: nausea and vomiting) Qty: 8 0RF Discharge Orders: Discharge ED (Routine); Ordered 09/30/22 Ordered By: Mary Stoll Discharge Diet: Advance as tolerated Discharge Activity: Resume usual activity Patient Instructions: Chest Pain (ED), Hypokalemia (ED) Coding Level of Care Code ED Meat Counter Worker for Kristyn Johnson
[2022-09-29] MEDS: morphine 4 mg/mL SDV 1 mL IVP (23:59)
[2022-09-30 00:11] LABS: Troponin(5th) Baseline 24 ng/L (0-10)
[2022-09-30 00:13] LABS: Alanine Aminotransferase 29 U/L (0-33); Albumin Level 4.3 g/dL (3.5-5.2); Alkaline Phosphatase 114 U/L (35-105); Anion Gap 14.6 (5-19); Aspartate Amino Transferase 21 U/L (0-32); Blood Urea Nitrogen 20 mg/dL (6-20); Calcium 9.4 mg/dL (8.5-10.5); Carbon Dioxide 27 mmol/L (22-29); Chloride 98 mmol/L (98-107); Globulin 2.6 g/dL (1.3-4.6); Glomerular Filtration Rate 57.8 mL/min (90-130); Glucose 118 mg/dL (65-115); Osmolality Calculated 288 mOsm/kg (285-295); Sodium 137 mmol/L (136-145); Total Bilirubin 0.4 mg/dL (0.15-1.2); Total Protein 6.9 g/dL (6.6-8.7)
[2022-09-30 00:29] LABS: Potassium 2.6 mmol/L (3.5-5.1)
[2022-09-30] MEDS: potassium chloride ER 20 mEq Tablet 80 MEQ PO (00:46)
[2022-09-30 01:20] LABS: Troponin 5 2HR 19.36 ng/L (0-10)
--- NOTE | 2022-09-30 01:20 | ECG_ITS ---
[facility] Test Date: 2022-09-30 Pat Name: Malathi Caicedo Department: Room: Gender: Female Otm Consultant: : 1970 Requested By: Mary Stoll Order Number: [id number] Basim MD: Ivon Braden M.D. Measurements Intervals [place] Rate: 77 P: 47 NV: 153 QRS: -29 QRSD: 104 T: 60 QT: 340 QTc: 385 Interpretive Statements SINUS RHYTHM BORDERLINE LEFT AXIS DEVIATION [QRS AXIS < -20] NONSPECIFIC T-WAVE ABNORMALITY Compared to ECG 09/29/2022 23:25:52 Possible ischemia no longer present T-wave abnormality still present Electronically Signed On 09-30-2022 5:38:57 CDT by Ivon Braden M.D. [email or web address]/[id number]
[2022-09-30 01:27] LABS: Troponin 5 2HR Delta -4.64 ABS# (0-10)
[2022-09-30 01:33] VITALS: BP 209/129; PULSE 81; O2SAT 97
[2022-09-30] MEDS: HYDROmorphone 1 mg/mL INJ 1 mL 0.5 MG IVP (01:34)
[2022-09-30] MEDS: ondansetron 2 mg/ML SDV 2 mL 4 MG IVP (01:34)
[2022-09-30 02:29] LABS: Potassium 2.7 mmol/L (3.5-5.1)
[2022-09-30 02:45] VITALS: BP 176/103; PULSE 90; RESP 18; O2SAT 94
--- NOTE | 2022-10-01 15:14 | DCPLANNER ---
manager cardiac called patient due to no primary care physician - no answer at this time.
== END 2022-09-30 02:42 | disposition home or self-care (01) ==
PROVIDERS: Emergency Provider Emergency Medicine
DX: R07.89 Other chest pain (principal); I10 Essential (primary) hypertension; T46.4X6A Underdosing of angiotensin-converting-enzyme inhibitors, initial encounter; E87.6 Hypokalemia
CPT/HCPCS: 36415; 71045; 80053; 83735; 84132; 84484; 85025; 93005; 96374; 96375; 96376; 99285; J0360; J1170; J2270; J2405